=== PATIENT | male | born 1990 | race African-American/Black ===

== ENCOUNTER 2022-07-15 08:08 | Emergency (ER) | payer OTHER ==
[~2022-07-15] VITALS: Ht 187 cm; Wt 104.0 kg
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
[2022-07-15 08:34] LABS: BASOPHILS % (AUTO) 0 % (0-10); EOSINOPHILS # (AUTO) 0.1 10^3/uL (0.0-0.3); EOSINOPHILS % (AUTO) 2 % (0-10); HEMATOCRIT 46 % (40-54); HEMOGLOBIN 15.3 g/dL (13.3-17.7); LYMPHOCYTES # (AUTO) 1.8 10^3/uL (1.0-4.0); LYMPHOCYTES % (AUTO) 20 % (12-44); MEAN CORPUSCULAR HEMOGLOBIN 28 pg (25-34); MEAN CORPUSCULAR HGB CONC 33 g/dL (32-36); MEAN CORPUSCULAR VOLUME 85 fL (80-99); MEAN PLATELET VOLUME 8.8 fL (9.0-12.2); MONOCYTES # (AUTO) 0.7 10^3/uL (0.0-1.0); MONOCYTES % (AUTO) 7 % (0-12); NEUTROPHILS # (AUTO) 6.4 10^3/uL (1.8-7.8); NEUTROPHILS % (AUTO) 70 % (42-75); PLATELET COUNT 323 10^3/uL (130-400); WHITE BLOOD COUNT 9.1 10^3/uL (4.3-11.0)
[2022-07-15 08:43] LABS: ALBUMIN 4.7 GM/DL (3.2-4.5)
[2022-07-15 08:44] LABS: CHLORIDE 100 MMOL/L (98-107); POTASSIUM 3.8 MMOL/L (3.6-5.0); SODIUM 136 MMOL/L (135-145)
[2022-07-15 08:45] LABS: CALCIUM 9.5 MG/DL (8.5-10.1)
[2022-07-15 08:46] LABS: GLUCOSE 90 MG/DL (70-105)
[2022-07-15 08:47] LABS: CARBON DIOXIDE 29 MMOL/L (21-32)
[2022-07-15 08:48] LABS: BILIRUBIN,TOTAL 0.9 MG/DL (0.1-1.0)
[2022-07-15 08:50] LABS: ALKALINE PHOSPHATASE 42 U/L (40-136); CREATININE SERUM 1.21 MG/DL (0.60-1.30); GFR ESTIMATED 81
[2022-07-15 08:51] LABS: BUN/CREATININE RATIO 10
[2022-07-15 08:53] LABS: ALANINE AMINOTRANSFERASE 19 U/L (0-55)
--- NOTE | 2022-07-15 08:58 | Diagnostic Imaging Report ---
PROCEDURE: CT head without contrast. TECHNIQUE: Multiple contiguous axial images were obtained through the brain without the use of intravenous contrast. Auto Exposure Controls were utilized during the CT exam to meet ALARA standards for radiation dose reduction. INDICATION: Confusion. No prior studies are available for comparison. FINDINGS: Ventricles and sulci are within normal limits. No sulcal effacement or midline shift is identified. No acute intra-axial or extra-axial hemorrhage is detected. Cisterns are patent. Visualized paranasal sinuses are clear. IMPRESSION: No acute intracranial process is detected. Dictated by: Dictated on workstation # [id number]
[2022-07-15 09:08] VITALS: BP 114/83
== END 2022-07-15 09:10 | disposition home or self-care (01) ==
LOC: EDUNIT# 08:08 → ER 08:11
DX: R41.0 Disorientation, unspecified (principal); Z72.0 Tobacco use; Z28.310 Unvaccinated for COVID-19
CPT/HCPCS: 70450; 80053; 85025; 99283; G0480; 36415; 80320